=== PATIENT | male | born 1965 | race Caucasian/White ===

== ENCOUNTER → 2016-12-26 | Outpatient (CLI) | payer OTHER ==
--- NOTE | 2016-12-26 15:32 | REP ---
MR LUMBAR SPINE WITHOUT CONTRAST: HISTORY: Back pain. Decreased signal intensity on T2-weighted images is present in the T11-12 through L5-S1 intervertebral discs. The L3-4 and L4-5 intervertebral discs are decreased in height. These findings are consistent with disc degeneration. There is no disc bulge or herniation at the L1-2 and L2-3 levels. The nerves exit the neural foramina without compression. A diffuse disc bulge is present at the L3-4 level. There is minimal compression of the thecal sac. There is hypertrophy of the posterior articulating facets. The L3 nerves exit the neural foramina without compression. A diffuse disc bulge is present at the L4-5 level. There is minimal compression of the thecal sac. There is hypertrophy of the posterior articulating facets. The L4 nerves exit the neural foramina without compression. Small subchondral cysts are present in the anterior L4 facets. A diffuse disc bulge and small central disc protrusion are present at the L5-S1 level. There is minimal compression of the thecal sac. There is hypertrophy of the posterior articulating facets. The L5 nerves exit the neural foramina without compression. The conus medullaris is normal in appearance terminating at the level of the T12-L1 intervertebral disc. Increased signal intensity on T2-weighted images is present in the endplates of the L2 through L5 vertebral bodies. This represents degenerative change. There is aneurysmal dilatation of the abdominal aorta measuring 4.8 cm. IMPRESSION: 1. Diffuse disc bulges at the L3-4 and L4-5 levels with minimal thecal sac compression. 2. Diffuse disc bulge and small central disc protrusion at the L5-S1 level with minimal thecal sac compression. 3. There is a 4.8 cm abdominal aortic aneurysm. Ultrasound may be helpful for further evaluation. Signed by Rafita Colno MD 12/26/2016 03:38 P
== END ==
LOC: M RAD 10:58
PROVIDERS: ATTEND Nurse Practitioner Family
DX: M79.1 Myalgia (principal); M51.26 Other intervertebral disc displacement, lumbar region; M47.817 Spondylosis without myelopathy or radiculopathy, lumbosacral region; I71.9 Aortic aneurysm of unspecified site, without rupture

== ENCOUNTER → 2018-05-10 | Outpatient (CLI) | payer OTHER | LOC: M RAD 07:20 | DX: J43.1 Panlobular emphysema (principal) | CPT/HCPCS: 71250 ==

== ENCOUNTER → 2018-05-18 | Outpatient (REF) | payer OTHER ==
[2018-05-18 11:50] LABS: PLATELET COUNT, AUTOMATED 190 10^3/uL (150-450)
[2018-05-18 12:01] LABS: INR 0.95; PROTHROMBIN TIME 12.8 SECONDS (12.1-14.4)
[2018-05-18 12:02] LABS: PARTIAL THROMBOPLASTIN TIME 31.4 SECONDS (25.4-37.6)
== END ==
LOC: M LABDRAW1 11:37
DX: Z01.812 Encounter for preprocedural laboratory examination (principal)
CPT/HCPCS: 85049

== ENCOUNTER → 2019-02-01 | Outpatient (CLI) | payer OTHER ==
--- NOTE | 2019-02-01 23:24 | REP ---
Clinical: Follow up abnormal findings. Technique: Axial noncontrast images from the thoracic inlet to the upper abdomen with coronal and sagittal re-formations. Comparison: 04/30/2018, 05/27/2017. Findings: Advanced COPD/emphysematous changes with scattered fibrosis/scarring and bronchiectasis again noted. There is irregular nodular density in the periphery of the right upper lobe (image 46) measuring 17 mm maximal diameter with smaller adjacent nodules measuring approximately 1-2 mm. Findings are considerably increased when compared to prior examination and concerning for active process. There is also a well-circumscribed 2.1 cm round mass in the right suprahilar region (image 49) which represents a new finding as compared to 05/10/2018. No significant effusion. No pneumothorax. Subtle mediastinal and hilar adenopathy with lymph nodes measuring up to approximately 14 - 15 mm are suspected. Thoracic aorta, pulmonary vasculature, and heart/pericardium are relatively stable. Limited upper abdomen demonstrates normal bilateral adrenal glands and incompletely evaluated right renal cyst measuring at least 6.5 cm diameter. Skeletal structures are intact without focal osseous abnormality. Impression: 1. 2.1 cm round mass in the right suprahilar region and new nodular density in the periphery of the right upper lobe along with mild adenopathy. Findings are concerning for malignancy. 2. Chronic advanced COPD/emphysematous disease. Electronically Signed by Jose Carlos Baig MD 02/01/2019 11:15 P
== END ==
LOC: M RAD 08:43
PROVIDERS: ATTEND Internal Medicine Pulmonary Disease
DX: R91.8 Other nonspecific abnormal finding of lung field (principal); J44.9 Chronic obstructive pulmonary disease, unspecified

== ENCOUNTER → 2019-06-26 | Outpatient (CLI) | payer OTHER ==
[2019-06-26 18:25] LABS: BLOOD UREA NITROGEN 9 MG/DL (7-18); CREATININE FOR GFR 0.83 MG/DL (0.70-1.30); GLOMERULAR FILTRATION RATE > 60.0 (>56)
== END ==
LOC: M PLALAB 15:22
PROVIDERS: ATTEND Internal Medicine Pulmonary Disease
DX: R91.8 Other nonspecific abnormal finding of lung field (principal)

== ENCOUNTER → 2019-07-13 | Outpatient (CLI) | payer OTHER ==
[~2019-07-13] MED LIST: ISOVUE-370 76% 100ML VIAL (Q9967) As Ordered ONE
--- NOTE | 2019-07-13 19:10 | REP ---
CT CHEST WITH IV CONTRAST: TECHNIQUE: Axial contrast enhanced images from the thoracic inlet to the upper abdomen using 100 mL Isovue 370 intravenous contrast material with multiplanar reformations. COMPARISON: 02/01/2019 Once again there are diffuse emphysematous and fibrotic changes noted. In the peripheral right upper lobe there is again a spiculated focal opacity with an approximate diameter of 1.9 cm. This appears relatively similar compared to the prior study. There is a subcentimeter nodular opacity in the right lower lobe anteriorly on image 62, which is also stable. No new parenchymal nodules are identified. There is somewhat bulky right hilar adenopathy which has mildly increased since the prior exam. In the right suprahilar region bilobed adenopathy has a maximum transverse diameter of 2.2 cm, previously approximately 1.7 to 1.8 cm. There is increase in the more central right hilar adenopathy. There is also subcarinal, precarinal and paratracheal adenopathy which has mildly increased. There is mild AP window adenopathy. No axillary adenopathy is seen. Heart is normal in size. Thoracic aorta is normal in caliber. There is no pleural or pericardial effusion. There is a calcified granuloma on the right lung base. No adrenal mass is seen. There is a right renal cyst which measures approximately 6.2 cm in diameter. IMPRESSION: Ill-defined spiculated density peripheral right upper lobe approximately 1.9 cm in diameter. This appears similar to the prior study. Neoplasm cannot be excluded. Subcentimeter nodular density right lower lobe anteriorly on image 61 is of doubtful significance. There is mild increase in right hilar and mediastinal lymphadenopathy as discussed above. Electronically Signed by Jaiden Jean-Baptiste MD 07/14/2019 04:39 P
== END ==
LOC: M RAD 15:00
PROVIDERS: ATTEND Internal Medicine Pulmonary Disease
DX: R91.8 Other nonspecific abnormal finding of lung field (principal)
CPT/HCPCS: 71260; Q9967

== ENCOUNTER 2019-08-02 07:52 | Day surgery (SDC) | payer OTHER ==
[~2019-08-02] VITALS: Ht 185.4 cm; Wt 94.7 kg
[~2019-08-02 07:52] MED LIST changes: +AMBI10TA PO; +ASPI81TA26 PO; +ATOR1TAB21 PO; +BUSP30TA PO; +CLONI1TA PO; -ISOVUE-370 76% 100ML VIAL (Q9967) As Ordered ONE; +LIDOCAINE 2% INJ 100 MG/5 ML SDV (FOR ANES.) As Ordered ONE; +MIDAZOLAM INJ 2 MG/2 ML VIAL (J2250) As Ordered ONE; +ONDANSETRON 4MG/2ML VIAL (J2405) As Ordered ONE; +ROCURONIUM BROMIDE 50 MG/5 ML VIAL As Ordered ONE; +SUGAMMADEX SODIUM 500 MG/5 ML VIAL (BRIDION) As Ordered ONE; +VENTAER INH; +XANA0.5T PO; +dexameTHASONE 4 MG/ML 1ML VIAL (J1100) As Ordered ONE; +fentaNYL 100 MCG/2 ML INJECTION (J3010) As Ordered ONE; +propofoL 200 MG/20 ML VIAL As Ordered ONE
[2019-08-02] MEDS ORDERED: ARNU1INH IN (08:21)
[2019-08-02] MEDS ORDERED: ANOR1AER IN (08:21)
[2019-08-02] MEDS ORDERED: CETACAINE SPRAY 5GM As Ordered ONE (08:36)
[2019-08-02] MEDS ORDERED: THROMBIN SOLN 5,000 UNITS VIAL As Ordered ONE (08:36)
[2019-08-02] MEDS ORDERED: LIDOCAINE 4% TOPICAL SOLN 50 ML BTL As Ordered ONE (08:37)
[2019-08-02] MEDS ORDERED: LIDOCAINE VISCOUS 2% SOLN 15ML UDC As Ordered ONE (08:37)
[2019-08-02] MEDS ORDERED: LIDOCAINE 1% SDV INJ 30 ML VIAL As Ordered ONE (08:37)
[2019-08-02] MEDS ORDERED: fentaNYL 100 MCG/2 ML INJECTION (J3010) IV PRN (11:00)
[2019-08-02] MEDS ORDERED: ONDANSETRON 4MG/2ML VIAL (J2405) IV PRN (11:00)
[2019-08-02] MEDS ORDERED: METOCLOPRAMIDE INJ 10MG/2ML VIAL (J2765) IV PRN (11:00)
[2019-08-02] MEDS ORDERED: MORPHINE 2 MG/ML 1ML VIAL (J2270) IV PRN (11:00)
[2019-08-02] MEDS ORDERED: LR 1,000 ML IV SCH (11:00)
[2019-08-02] MEDS ORDERED: IPRATROPIUM 0.5MG/ALBUTEROL 2.5MG INH SOL UD 3ML (DUONEB)(J7620) As Ordered ONE (11:10)
[2019-08-02] MEDS ORDERED: IPRATROPIUM 0.5MG/ALBUTEROL 2.5MG INH SOL UD 3ML (DUONEB)(J7620) NEB ONE (11:15)
[2019-08-02 12:54] VITALS: BP 120/58
--- NOTE | 2019-08-03 16:26 | ROOR ---
Patient Name: Leonel Umanzor Procedure Date: 08/02/2019 8:37 AM Date of : 1965 Admit Type: Outpatient Age: 54 Room: Main OR Note Status: Finalized Attending MD: Consuelo Landers MD Procedure: Bronchoscopy Indications: Right upper lobe nodule, Hilar lymphadenopathy of the right side, Paratracheal adenopathy Providers: Consuelo Landers MD (Doctor) Referring MD: Elkin Luke DO (Referring MD) Requesting Physician: Medicines: General Anesthesia, Cetacaine topical Complications: No immediate complications. Estimated blood loss: Minimal Procedure: Pre-Anesthesia Assessment: - Prior to the procedure, a History and Physical was performed, and patient medications and allergies were reviewed. The patient's tolerance of previous anesthesia was also reviewed. The risks and benefits of the procedure and the sedation options and risks were discussed with the patient. All questions were answered, and informed consent was obtained. Prior Anticoagulants: The patient has taken no previous anticoagulant or antiplatelet agents. ASA Grade Assessment: III - A patient with severe systemic disease. After reviewing the risks and benefits, the patient was deemed in satisfactory condition to undergo the procedure. The Bronchoscope was introduced through the mouth, via the endotracheal tube (the patient was intubated for the procedure) and advanced to the tracheobronchial tree of both lungs. The procedure was accomplished without difficulty. The patient tolerated the procedure well. Findings: The endotracheal tube is in good position. The visualized portion of the trachea is of normal caliber. The cheli is sharp. The tracheobronchial tree was examined to at least the first subsegmental level. Bronchial mucosa showed no endobronchial lesions, there was some pitting and webbing with few thick clear mucoid secretions. Bronchial anatomy was normal except in left upper lobe there was anatomic variant noted. An endobronchial ultrasound endoscope was utilized in order to assist with fine needle aspiration in the right peribronchial area, the paratracheal area, in the subcarinal area, and in the right hilum. Transbronchial needle aspirations of a perihilar mass were performed in the right peribronchial area of the right main bronchus using an Olympus EBUS-TBNA 21 gauge needle and sent for routine cytology and histopathology examination. The procedure was guided by ultrasound. Transbronchial needle aspiration technique was selected because the sampling site was not visible endoscopically. Transbronchial needle aspirations were performed of lymph nodes in the right paratracheal, in the subcarinal area, and in the right hilum (11R) using an Olympus EBUS-TBNA 21 gauge needle and sent for routine cytology and histopathology examination. The procedure was guided by ultrasound. Transbronchial needle aspiration technique was selected because the sampling site was not visible endoscopically. Impression: - Right upper lobe nodule - Hilar lymphadenopathy of the right side - Paratracheal adenopathy - The airway examination was normal. - Endobronchial ultrasound was performed. - A transbronchial needle aspiration was performed. Recommendation: - The patient will be observed post-procedure, until all discharge criteria are met. - Follow up with referring physician as previously scheduled. Attending Participation: I personally performed the entire procedure. Consuelo Landers MD 08/03/2019 4:26:06 PM Number of Addenda: 0 Note Initiated On: 08/02/2019 8:37 AM
[2019-09-12] MEDS ORDERED: FOLI1TAB11 PO (11:22)
== END 2019-08-02 13:10 | disposition home or self-care (01) ==
LOC: M SDC 07:52
PROVIDERS: ATTEND Internal Medicine Pulmonary Disease
DX: C34.11 Malignant neoplasm of upper lobe, right bronchus or lung (principal); C77.1 Secondary and unspecified malignant neoplasm of intrathoracic lymph nodes; J84.10 Pulmonary fibrosis, unspecified; J43.1 Panlobular emphysema; F17.218 Nicotine dependence, cigarettes, with other nicotine-induced disorders; I71.4 Abdominal aortic aneurysm, without rupture; E78.5 Hyperlipidemia, unspecified; Z79.82 Long term (current) use of aspirin; Z79.899 Other long term (current) drug therapy; Z88.0 Allergy status to penicillin; Z88.1 Allergy status to other antibiotic agents; Z91.041 Radiographic dye allergy status
CPT/HCPCS: 31629; 31652; 88173; 88305; 88341; 88342; J1100; J2250; J2405; J3010

== ENCOUNTER → 2019-08-23 | Outpatient (CLI) | payer OTHER ==
[~2019-08-23] MED LIST changes: +ANOR1AER IN; +ARNU1INH IN; -LIDOCAINE 2% INJ 100 MG/5 ML SDV (FOR ANES.) As Ordered ONE; -MIDAZOLAM INJ 2 MG/2 ML VIAL (J2250) As Ordered ONE; -ONDANSETRON 4MG/2ML VIAL (J2405) As Ordered ONE; -ROCURONIUM BROMIDE 50 MG/5 ML VIAL As Ordered ONE; -SUGAMMADEX SODIUM 500 MG/5 ML VIAL (BRIDION) As Ordered ONE; -dexameTHASONE 4 MG/ML 1ML VIAL (J1100) As Ordered ONE; -fentaNYL 100 MCG/2 ML INJECTION (J3010) As Ordered ONE; -propofoL 200 MG/20 ML VIAL As Ordered ONE
--- NOTE | 2019-08-23 16:06 | REP ---
Whole body PET CT scan for staging of right lung neoplasm: Comparison is the chest CT dated 07/13/2019 that demonstrates a spiculated right upper lobe nodule and bulky right hilar adenopathy. The Whole-body scanning is performed from skull base to the upper thighs. Neck and supraclavicular areas: There are no hypermetabolic foci. Chest: The spiculated right upper lobe lung nodule is borderline hypermetabolic with a maximal standard uptake value of 3.8. The bulky right hilar adenopathy is hypermetabolic with a maximal standard uptake value of 10.8. There are no other lung foci. There are no other foci in the mediastinum, left hilus or right or left axilla. Abdomen, pelvis and upper thighs: There are no hypermetabolic foci. Impression: The spiculated right upper lobe lung mass is borderline hypermetabolic. The bulky right hilar adenopathy is hypermetabolic. No other hypermetabolic foci are identified. The study is performed with 8.68 mCi of F 18 FDG. Electronically Signed by Jaiden Benitez MD 08/23/2019 03:58 P
== END ==
LOC: M PLARAD 07:26
PROVIDERS: ATTEND Internal Medicine Pulmonary Disease
DX: C34.11 Malignant neoplasm of upper lobe, right bronchus or lung (principal); C77.1 Secondary and unspecified malignant neoplasm of intrathoracic lymph nodes
CPT/HCPCS: 78815; A9552

== ENCOUNTER → 2019-09-12 | Outpatient (CLI) | payer OTHER ==
[~2019-09-12] MED LIST changes: +FOLI1TAB11 PO
--- NOTE | 2019-09-12 22:21 | RADONC ---
DATE OF SERVICE: 09/12/2019 CHIEF COMPLAINT: Adenocarcinoma of the right lung. DIAGNOSIS: Clinical stage III nonsmall cell lung cancer, adenocarcinoma PD-L1 30%. HISTORY OF PRESENT ILLNESS: Mr. Umanzor is a 54-year-old gentleman with a history of COPD, AAA, and 45 pack-year of smoking, just quit 2 months ago, and history of occupational asbestos exposure.Based on Medical record, he has had abnormal CT since May of 2017, which he is not aware of. He had a CT chest on 02/01/2019 and compared previous CTs on 04/30/2018 and 05/27/2017, which showed 2.1 cm round mass in the right suprahilar region and a new nodular density in the periphery of the right upper lobe along with a mild adenopathy. Findings are concerning for malignancy and chronic advanced COPD. He returned to care in June of 2019. CT in 2019 revealed increasing adenopathy, and he was referred for EBUS and FNA. Bronchoscopy was performed on 08/02/2019. Biopsy of the right peribronchial area as well as subcarinal lymph nodes and right paratracheal lymph node and the right 11R lymph nodes were obtained. Pathology confirmed non-small cell carcinoma, moderate to poorly differentiated adenocarcinoma from the right perihilar mass and right paratracheal lymph node. FNA from the subcarinal lymph node and the right hilar 11R lymph node showed no definite malignancy. His pulmonary function test showed moderately severe COPD with moderate diffusion impairment that combined with the clinical stage precludes surgical treatment. Genomic test was performed, and it was negative for the ALK mutation, ROS1 gene rearrangement, negative BRAF, negative KRAF and negative EGFR mutation. The PD-L1 showed a tumor proportion score of 30% expression. A PET CT was performed. It reported the spiculated right upper lobe lung mass is borderline hypermetabolic and the bulky right hilar adenopathy is hypermetabolic. Maximum SUV of 10.8. There are no other hypermetabolic foci identified. PAST MEDICAL HISTORY: Significant for; COPD. 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 Tobacco use. He discontinued about 2 months ago. 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 Hyperlipidemia. Renal cyst resected once. Hydrocele twice. Abdominal aortic aneurysm repaired. He has thoracic aortic aneurysm. ADD/ADHD. Left shoulder injury. PAST SURGICAL HISTORY: Includes; Renal cyst removed. Left shoulder surgery. Hydrocele surgery twice. Abdominal aortic aneurysm repaired with a stent. MEDICATIONS: Atorvastatin 20 mg 1 daily Ventolin HFA inhalation, 2 puff every 6 hours prn busPiRone 30 mg BID and baby aspirin, folic acid. ALLERGIES: IV dye : vomiting. Keflex : angioedema penicillin: angioedema SOCIAL HISTORY: He lives with , very supportive spouse since high school, and they and joined together recently. 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 FAMILY HISTORY: There is no family history of cancer. REVIEW OF SYSTEMS: General and Constitutional: Denies fever, chills. No recent weight changes. No night sweats. HEENT: Denies blurry vision, double vision. Denies hearing problems. Denies hoarseness. Respiratory/Pulmonary: Denies cough, wheezing, short of breath. Cardiovascular system: No chest pain. No palpitations. GI: No nausea, vomiting, no heartburn, no abdominal pain. No constipation. No diarrhea. : No urinary frequency, dysuria, urgency, hematuria, or incontinence. Musculoskeletal: Denies bony pain, myalgia. No back pain. No joint swelling. Skin: No rash. No lesions. Neurologic: Denies headache, seizures, tremor. Hematologic: No bleeding or bruising. Psychiatric/Emotional: Denies anxiety, depression. ECOG performance status: 0. PHYSICAL EXAMINATION: Vital Signs: His blood pressure is 109/75, pulse 71, respirations 18, temperature 97.9, 90% O2 saturation in room air. General and Constitutional: General examination revealed well-developed, well-nourished male who does not appear to be in apparent distress. The patient was alert and oriented. HEENT: Normocephalic. Sclerae nonicteric. Poor dentition. Neck: Supple. No mass or thyromegaly. There are no palpable lymphadenopathies. Cardiovascular: Regular rhythm and rate. No murmurs. Respiratory: Clear to auscultation. Abdomen: Soft, nontender, nondistended without any palpable mass or organomegaly. There is a scar for the AAA repair. Extremities: noted clubbing of fingers. No cyanosis. No edema. Skin: There are no skin lesions. Neurological: Strength and sensation grossly intact. Psychiatric: The mood and affect is appropriate. Pathological findings as mentioned in HPI. Physiological findings mentioned in HPI. ICD-10 code: C34.11 DX: clinical stage III non-small cell lung cancer, adenocarcinoma PD-L1 30%. ASSESSMENT AND RECOMMENDATION: Mr. Umanzor is a 54-year-old pleasant gentleman, history of COPD, ADHD, and occupational asbestos exposure, has had abnormal CT since 2016, which he is not aware of. Followup CT in January 2019 demonstrated 2.1 cm right suprahilar mass, mediastinal and hilar adenopathy were new and concerning. He returned, repeated CT. He had a bronchoscopy on 08/02/2019, confirmed moderate to poorly differentiated adenocarcinoma in the right perihilar mass and the right paratracheal lymph node. 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 PET CT revealed spiculated right upper lobe lung mass, borderline hypermetabolic, SUV of 3.8 and bulky right hilar adenopathy with SUV of 10.8. The patient's performance status is excellent. He has no significant respiratory symptoms. The patient was accompanied by his , and we have discussed the nature of the disease and treatment options. We also reviewed NCCN guidelines, He informed me that is followed by [facility] . and recommendation induction chemoimmunotherapy and after 3-4 cycles, he can be reevaluated. After discussion, I have given them a chance to ask questions and concerns, and they were answered to their satisfaction. MAURID
== END ==
LOC: M ONCR 10:33
PROVIDERS: ATTEND Radiology Radiation Oncology
DX: C34.90 Malignant neoplasm of unspecified part of unspecified bronchus or lung (principal); J44.9 Chronic obstructive pulmonary disease, unspecified; Z87.891 Personal history of nicotine dependence; Z77.090 Contact with and (suspected) exposure to asbestos; I71.4 Abdominal aortic aneurysm, without rupture; F90.9 Attention-deficit hyperactivity disorder, unspecified type

== ENCOUNTER → 2019-10-24 | Outpatient (CLI) | payer OTHER ==
[~2019-10-24] MED LIST changes: +DEXA4TA PO; +ISOVUE-370 76% 100ML VIAL (Q9967) As Ordered ONE; +LEVO75TA34 PO; +ONDA8TAB10 PO; +PROC10TA4 PO
--- NOTE | 2019-10-24 15:16 | REP ---
REASON: History of stage 3 lung carcinoma. COMPARISON: Multiple, the latest 07/13/2019. CONTRAST: 100 mL Isovue 370. The mediastinal and right hilar adenopathy does not appear to have changed significantly. There does, however, appear to be a slight increase in the left hilar adenopathy. The prior prominent left hilar node has increased by nearly 1 cm. There are no pleural or pericardial effusions. There is no change in the imaged upper abdomen or imaged osseous structures. Evaluation of the lung diaz shows stable chronic changes. The small nodule in the right lower lobe does appear, however, slightly more prominent when its maximal dimension previously was 5 mm its maximal dimension today is 8 mm. Other smaller nodules have either an imperceptible increase or they are completely stable. IMPRESSION: 1. Adenopathy as described above. 2. Chronic lung field changes as described above. 3. Evidence of increased size in the nodule in the right lower lobe as described above which is concerning for. Other findings as described above. Electronically Signed by Edmond Valdez DO 10/24/2019 03:23 P
== END ==
LOC: M RAD 13:11
PROVIDERS: ATTEND Internal Medicine Medical Oncology
DX: C34.90 Malignant neoplasm of unspecified part of unspecified bronchus or lung (principal)
CPT/HCPCS: 71260; Q9967

== ENCOUNTER 2019-10-27 13:52 | Emergency (ER) | payer OTHER ==
[~2019-10-27] VITALS: Ht 185.4 cm; Wt 99.1 kg
[~2019-10-27 13:52] MED LIST changes: -ISOVUE-370 76% 100ML VIAL (Q9967) As Ordered ONE
--- NOTE | 2019-10-27 14:48 | REP ---
Head CT without contrast: History: Headache Comparison study: Comparison brain MRI study September 06, 2019. CT findings: Bone window settings demonstrate an intact bony calvarium. There is no evidence of skull fracture or incidental bony calvarial lesion. The visualized paranasal sinuses appear clear. No intraorbital abnormality is seen. On soft tissue window setting images; the lateral, third, and fourth ventricles are normal in size and position. Jean-Baptiste-white differentiation pattern is normal above and below the tentorium. There are is no evidence of intracranial hemorrhage. No mass, edema, infarction, or midline shift is seen. No extra-axial fluid collection is appreciated. Impression: Negative noncontrast head CT. Electronically Signed by Harvey Wall MD 10/27/2019 02:40 P
[2019-10-27 14:52] LABS: HEMATOCRIT 42.5 % (42.0-52.0); HEMOGLOBIN 14.3 g/dl (13.5-17.5); MEAN CORPUSCULAR HEMOGLOBIN 32.4 pg (27.0-33.0); MEAN CORPUSCULAR HGB CONC 33.6 g/dl (32.0-36.5); MEAN CORPUSCULAR VOLUME 96.2 fl (80.0-96.0); PLATELET COUNT, AUTOMATED 205 10^3/uL (150-450); RED BLOOD COUNT 4.42 10^6/uL (4.30-6.10); WHITE BLOOD COUNT 4.3 10^3/uL (4.0-10.0)
[2019-10-27 15:03] LABS: INR 1.24; PROTHROMBIN TIME 15.3 SECONDS (11.8-14.0)
[2019-10-27 15:20] LABS: BLOOD UREA NITROGEN 12 MG/DL (7-18); CALCIUM LEVEL 8.9 MG/DL (8.5-10.1); CARBON DIOXIDE LEVEL 27 MEQ/L (21-32); CHLORIDE LEVEL 106 MEQ/L (98-107); CREATININE FOR GFR 0.68 MG/DL (0.70-1.30); GLOMERULAR FILTRATION RATE > 60.0 (>56); GLUCOSE, FASTING 88 MG/DL (70-100); MAGNESIUM LEVEL 1.8 MG/DL (1.8-2.4); POTASSIUM SERUM 4.3 MEQ/L (3.5-5.1); SODIUM LEVEL 137 MEQ/L (136-145)
[2019-10-27 15:47] VITALS: BP 132/83
[2019-10-31] MEDS ORDERED: DECA4TAB PO (10:05)
[2019-10-31] MEDS ORDERED: SYNT75TA PO (10:05)
== END 2019-10-27 15:50 | disposition home or self-care (01) ==
LOC: M ED 13:52
DX: G44.219 Episodic tension-type headache, not intractable (principal); I10 Essential (primary) hypertension; J45.909 Unspecified asthma, uncomplicated; I71.4 Abdominal aortic aneurysm, without rupture; Z85.118 Personal history of other malignant neoplasm of bronchus and lung; Z79.899 Other long term (current) drug therapy; Z79.82 Long term (current) use of aspirin; Z88.0 Allergy status to penicillin; Z88.1 Allergy status to other antibiotic agents; Z91.041 Radiographic dye allergy status; Z87.891 Personal history of nicotine dependence

== ENCOUNTER → 2019-12-05 | Outpatient (CLI) | payer OTHER ==
[~2019-12-05] MED LIST changes: +DECA4TAB PO; +GASTROGRAFIN SOLUTION 30ML (Q9963) As Ordered ONE; +ISOVUE-370 76% 100ML VIAL As Ordered ONE; +SYNT75TA PO
--- NOTE | 2019-12-06 04:46 | REP ---
Clinical: Lung cancer restaging. Status post chemotherapy. Technique: Axial contrast enhanced images from the thoracic inlet to the upper abdomen with coronal and sagittal re-formations. Comparison: 10/24/2019. Findings: Lung diaz demonstrate diffuse advanced chronic COPD/emphysematous changes with subpleural fibrosis and scarring. Few scattered calcified granulomata are also identified. The 9 mm nodule noted in the anterior segment of the right lower lobe on prior examination appears to be decreased to approximately 3 mm (image 65). A small ill-defined focal area of density and adjacent scarring in the anterior right upper lobe (image 48) remains unchanged. No further significant acute consolidation, obvious large nodule or mass lesion identified. No pleural effusion. No pneumothorax. Mediastinal and hilar adenopathy is again noted, but subjectively mildly decreased as compared to prior examination. Thoracic aorta, pulmonary vasculature and heart/pericardium are within normal limits / stable. Small hiatal hernia at the gastroesophageal junction noted. Incompletely evaluated right renal cyst appears stable. Surrounding musculoskeletal structures are intact. Impression: 1. Mediastinal and hilar adenopathy appears minimally improved from prior examination. 2. Chronic advanced COPD/emphysematous changes along with fibrosis and scarring as described above essentially stable. 3. Small 9 mm right lower lobe nodule on prior examination has decreased to 3 mm. No obvious new area of consolidation, or mass lesion appreciated. Electronically Signed by Jose Carlos Baig MD 12/06/2019 04:39 A
--- NOTE | 2019-12-06 04:53 | REP ---
Clinical: Lung cancer restaging. Status post chemotherapy. Technique: Axial contrast enhanced images from the lung bases to the pubic symphysis using oral (per protocol) and 100 ml Isovue 370 intravenous contrast material with coronal and sagittal re-formations. Delayed images of the abdomen obtained. Comparison: None. Findings: Liver, spleen, pancreas, collapsed gallbladder, bilateral adrenal glands and left kidney are normal. Right kidney includes 6.2 cm simple cyst. Evaluation of the enteric system demonstrates prominent appearance to the gastric pylorus and proximal duodenum which may warrant further investigation. Small and large bowel is grossly unremarkable and without obstruction or acute inflammatory process. Scattered colonic and sigmoid diverticula noted without acute diverticulitis. Pelvis demonstrates normal bladder and age appropriate prostate/seminal vesicles. No ascites. No free air. No obvious intraperitoneal or retroperitoneal adenopathy. No obvious mass lesion. 2 cm fat containing periumbilical hernia noted. Evidence for prior aortoiliac stenting. Musculoskeletal structures are intact without focal osseous abnormality. Impression: 1. 6.2 cm simple right renal cyst. 2. Prominent appearance to the gastric pylorus and duodenum may warrant upper GI examination and/or endoscopy. 3. Scattered colonic diverticula without acute diverticulitis. 4. 2 cm fat containing periumbilical hernia. 5. Evidence for prior aortoiliac stenting. 6. No further acute abdominopelvic pathology appreciated. Electronically Signed by Jose Carlos Baig MD 12/06/2019 04:44 A
== END ==
LOC: M RAD 09:18
PROVIDERS: ATTEND Internal Medicine Medical Oncology
DX: C34.91 Malignant neoplasm of unspecified part of right bronchus or lung (principal); J44.9 Chronic obstructive pulmonary disease, unspecified; R59.0 Localized enlarged lymph nodes; N28.1 Cyst of kidney, acquired; K43.9 Ventral hernia without obstruction or gangrene; K57.30 Diverticulosis of large intestine without perforation or abscess without bleeding
CPT/HCPCS: 71260; 74177; Q9963; Q9967

== ENCOUNTER → 2020-05-13 | Outpatient (REF) | payer OTHER, MEDICAID ==
[~2020-05-13] MED LIST changes: -GASTROGRAFIN SOLUTION 30ML (Q9963) As Ordered ONE; -ISOVUE-370 76% 100ML VIAL As Ordered ONE
== END ==
LOC: M LAB REF 13:55
PROVIDERS: ATTEND Physician Assistant
DX: L30.9 Dermatitis, unspecified (principal)

== ENCOUNTER → 2020-05-27 | Outpatient (REF) | payer OTHER, MEDICAID | LOC: M LAB REF 12:51 | PROVIDERS: ATTEND Physician Assistant | DX: R21 Rash and other nonspecific skin eruption (principal) ==

== ENCOUNTER → 2021-11-26 | Outpatient (CLI) | payer OTHER ==
[~2021-11-26] MED LIST changes: +FLUT1BLS8; +ISOVUE-370 76% 100ML VIAL As Ordered ONE; +LEVO150T7; +LEVO25TA5 PO; +METH-1164 PO; +ONDA-84 PO; -ONDA8TAB10 PO; +OXYC1TAB23 PO; +POTA10TA17 PO; -PROC10TA4 PO; +PROC10TA5 PO
== END ==
LOC: M RAD 15:32
PROVIDERS: ATTEND Specialist
DX: C34.11 Malignant neoplasm of upper lobe, right bronchus or lung (principal)
CPT/HCPCS: 71260; Q9967